=== PATIENT | male | born 1955 | race Caucasian/White ===

== ENCOUNTER 2022-12-10 08:15 | Outpatient (CLI) | payer OTHER, SELFPAY ==
[2022-12-10 13:41] LABS: Uric Acid* 5.3 mg/dL (2.2-8.4)
[2022-12-10 13:42] LABS: Albumin* 4.1 g/dL (3.3-5.0)
[2022-12-10 13:43] LABS: Chloride* 103 mmol/L (96-114); Sodium* 139 mmol/L (135-149)
[2022-12-10 13:45] LABS: Aspartate Amino Transferase* 24 U/L (12-35); Carbon Dioxide* 30 mmol/L (20-32); Cholesterol* 133 mg/dL (90-199); Creatinine* 0.7 mg/dL (0.5-1.5); Estimated Glomerular Filt Rate 102 ml/min; Total Protein* 7.3 g/dL (6.0-8.3)
[2022-12-10 13:46] LABS: Alanine Aminotransferase* 26 U/L (4-50); Alkaline Phosphatase* 70 U/L (40-150); Blood Urea Nitrogen* 15 mg/dL (7-30); Calcium* 9.4 mg/dL (8.4-10.6); Glucose* 133 mg/dL (60-115); HDL Cholesterol* 30 mg/dL (>=40); LDL Cholesterol Calculated 82 mg/dL (<100); Potassium* 4.7 mmol/L (3.6-5.1); Triglycerides* 104 mg/dL (40-149)
[2022-12-10 13:55] LABS: Vitamin D 25 Hydroxy* 99 ng/mL (30-80)
== END 2022-12-10 08:16 | disposition home or self-care (01) ==
PROVIDERS: PCP Family Medicine; Visit Provider Physician Assistant Medical
DX: E79.0 Hyperuricemia without signs of inflammatory arthritis and tophaceous disease (principal); I10 Essential (primary) hypertension; I48.91 Unspecified atrial fibrillation; M10.9 Gout, unspecified; R73.03 Prediabetes; E66.01 Morbid (severe) obesity due to excess calories; Z68.41 Body mass index [BMI] 40.0-44.9, adult; Z86.39 Personal history of other endocrine, nutritional and metabolic disease
CPT/HCPCS: 80053; 80061; 82306; 84443; 84550